=== PATIENT | female | born 1945 | race African-American/Black ===

== ENCOUNTER 2019-08-05 23:07 | Emergency (ER) | payer OTHER ==
[2019-08-05 23:14] VITALS: BMI 37.5
--- NOTE | 2019-08-06 02:29 | PDOC ---
Attending Attestation - Resident Resident Name: Davi López - ED Attending Attestation I have performed the following: I have examined & evaluated the patient, The case was reviewed & discussed with the resident, I agree w/resident's findings & plan - HPI HPI: 08/06/19 05:22 see resident hpi - Physicial Exam PE: 08/06/19 05:22 agree with resident exam - Medical Decision Making 08/06/19 05:23 74-year-old female with posterior legpain, atraumatic Plan for lower extremity ultrasound in the morning Case to be signed out to day shift
--- NOTE | 2019-08-06 05:21 | PDOC ---
History of Present Illness - General Chief Complaint: Pain, Acute Stated Complaint: RT LEG PAIN Time Seen by Provider: 08/06/19 02:19 - History of Present Illness Initial Comments: 08/06/19 06:16 74y/o F HTN, Diabetes, spinal stenosis presents to the ED with complaints of right leg pain since Monday morning. Pain is throbbing and non radiating in nature and behind her ankle. Pain is exacerbated when area is touched or with ambulation. Reports no relieving factors at this time. She has had some associated swelling as well. She denies any trauma, falls, hx of blood clots or shortness of breath. She has taken nothing for relief at home 08/06/19 07:25 Past History - Past Medical History Allergies/Adverse Reactions: Allergies Allergy/AdvReac Type Severity Reaction Status Date / Time No Known Allergies Allergy Verified 08/05/19 23:10 COPD: No CHF: Yes Diabetes: Yes HTN: Yes Other medical history: spinal surgery - Suicide/Smoking/Psychosocial Hx Smoking History: Never smoked Review of Systems - Review of Systems Constitutional: No: Chills, Fever HEENTM: No: Eye Pain, Blurred Vision Respiratory: No: Cough, Shortness of Breath Cardiac (ROS): No: Chest Pain ABD/GI: No: Abdominal Distended, Diarrhea : No: Burning, Dysuria Musculoskeletal: No: Back Pain Neurological: No: Headache, Numbness *Physical Exam - Vital Signs Last Vital Signs Temp Pulse Resp BP Pulse Ox 98.2 F 95 H 17 123/74 95 08/06/19 01:25 08/06/19 01:25 08/06/19 01:25 08/06/19 01:25 08/06/19 01:25 - Physical Exam Comments: 08/06/19 06:08 GENERAL: Awake, alert, and fully oriented, in no acute distress HEAD: No signs of trauma, normocephalic, atraumatic EYES: PERRLA, EOMI, sclera anicteric, conjunctiva clear ENT: Auricles normal inspection, hearing grossly normal, nares patent, oropharynx clear without exudates. Moist mucosa NECK: Normal ROM, supple, no lymphadenopathy, JVD, or masses LUNGS: No distress, speaks full sentences, crackles at lung bases. HEART: Regular rate and rhythm, normal S1 and S2, no murmurs, rubs or gallops, peripheral pulses normal and equal bilaterally. ABDOMEN: Soft, nontender, normoactive bowel sounds. No guarding, no rebound. No masses EXTREMITIES : Normal inspection, Normal range of motion, 2+ pitting edema on lower extremities bilaterally. tenderness on right foot at achilles tendon. no calf tendernes, full dorsiflexion and plantar flexion. NEUROLOGICAL: Cranial nerves II through XII grossly intact. Normal speech, normal gait, no focal sensorimotor deficits SKIN: Warm, Dry, normal turgor, no rashes or lesions noted 08/06/19 06:09 ED Treatment Course - LABORATORY CBC & Chemistry Diagram: 08/06/19 05:07 08/06/19 05:07 - RADIOLOGY Radiology Studies Ordered: Category Date Time Status FOOT-RIGHT [RAD] Stat Radiology 08/06/19 04:38 Ordered DUPLEX VASCUL US-1 LEG [US] Stat Ultrasound 08/06/19 04:38 Ordered Medical Decision Making - Medical Decision Making 08/06/19 06:21 74y/o F HTN, Diabetes, spinal stenosis presents to the ED with complaints of right leg pain since Monday morning. cbc, cmp, duplex u/s of right leg, right foot and ankle x-ray 08/06/19 07:25 cbc, cmp unremarkable BNP: 395.3 08/06/19 07:26 Pending Ultrasound and X-rays Pt signed out to Dr. Logan. *DC/Admit/Observation/Transfer - Referrals Referrals: Bryanna Holland [Primary Care Provider] - - Patient Instructions - Post Discharge Activity
[2019-08-06 05:31] LABS: BASO % 0.4 % (0-2.0); EOS % 1.1 % (0-4.5); HEMATOCRIT 43.5 % (32.4-45.2); HEMOGLOBIN 14.5 GM/dL (10.7-15.3); LYMPH % 22.9 % (8-40); MCH 30.1 pg (25.7-33.7); MCHC 33.2 g/dl (32.0-36.0); MEAN CELL VOLUME 90.7 fl (80-96); MONO % 11.1 % (3.8-10.2); NEUT % 64.5 % (42.8-82.8); PLATELET COUNT 165 K/MM3 (134-434); RDW 13.4 % (11.6-15.6); WHITE BLOOD COUNT 6.1 K/mm3 (4.0-10.0)
[2019-08-06 05:51] LABS: ALBUMIN 3.7 g/dl (3.4-5.0); BILIRUBIN,TOTAL 1.6 mg/dL (0.2-1); BLOOD UREA NITROGEN 13.5 mg/dL (7-18); CALCIUM 10.4 mg/dL (8.5-10.1); CREATININE 0.9 mg/dL (0.55-1.3); POTASSIUM 4.3 mmol/L (3.5-5.1); TOT PROT 7.8 g/dl (6.4-8.2)
[2019-08-06 06:33] VITALS: TEMP 98.4
--- NOTE | 2019-08-06 07:23 | PDOC ---
*Physical Exam - Vital Signs Last Vital Signs Temp Pulse Resp BP Pulse Ox 98.4 F 62 17 122/74 97 08/06/19 06:31 08/06/19 06:31 08/06/19 06:31 08/06/19 06:31 08/06/19 06:31 - Physical Exam Comments: 08/06/19 08:46 Gen: Alert, NAD, comfortable-appearing. HEENT: PERRL, EOMI, MMM, NCAT. No conjunctival pallor. Sclera are non-icteric. CV: Regular rate and rhythm. No murmurs, rubs, or gallops. PULM: No resp distress. CTAB, no wheezes, rales, or rhonchi. ABD: soft, NT/ND, no rebound tenderness or guarding, no CVA tenderness. MSK: No bony deformities. 2+ pulses in all extremities. NEURO: AAOx3. PERRL. No gross CN deficits. Strength and sensation grossly intact throughout. EXTREMITIES: No cyanosis. No clubbing. No calf tenderness. Mild b/l ankle edema. Normal ROM of b/l knees and ankles. +TTP of posterior R ankle. Sensation to light touch intact in BLEs. PSYCH: Normal mood and thought pattern. SKIN: Warm and dry. Normal capillary refill. No rashes. No jaundice. ED Treatment Course - LABORATORY CBC & Chemistry Diagram: 08/06/19 05:07 08/06/19 05:07 - ADDITIONAL ORDERS Additional order review: Laboratory Results 08/06/19 08/06/19 05:07 05:07 Sodium 141 Potassium 4.3 Chloride 102 Carbon Dioxide 31 Anion Gap 8 BUN 13.5 Creatinine 0.9 Est GFR (CKD-EPI)AfAm 73.52 Est GFR (CKD-EPI)NonAf 63.43 Random Glucose 106 Calcium 10.4 H Total Bilirubin 1.6 H AST 21 ALT 24 Alkaline Phosphatase 79 B-Natriuretic Peptide 395.3 H Total Protein 7.8 Albumin 3.7 08/06/19 05:07 RBC 4.80 MCV 90.7 MCHC 33.2 RDW 13.4 MPV 9.0 Neutrophils % 64.5 Lymphocytes % 22.9 Monocytes % 11.1 H Eosinophils % 1.1 Basophils % 0.4 Medical Decision Making - Medical Decision Making 08/06/19 07:23 Received sign out from Dr Cantu. Pt seen and assessed at bedside. Pending US/ XRs. 74yo F hx HTN, DM, and spinal stenosis presents to the ED with R leg/ankle pain , TTP, and mild edema x2 days, atraumatic, no prior hx of similar sx, no DVT RFs or calf tenderness/swelling. No pain meds taken, denies pain meds. Hemodynamically stable, afebrile. Lungs clear, no SOB/respiratory sx/CP. Labs reviewed. No concerning findings on CBC/CMP. BNP 395. Pending duplex US RLE and XR R foot/ankle. If negative, d/c home w/PCP f/u. Most likely musculoskeletal vs arthritis vs diabetic neuropathy. 08/06/19 08:59 XRs: no signs of gross fx or subluxation. There is calcaneal spurring. Appears to be old avulsion or calcification by the medial malleolus. Bunion formation by the first MTP joint, flexed toes with arthritic changes and extensive calcaneal spurring with tarsal bone arthritic changes. Some minimal swelling and vascular calcifications. Degenerative changes in knee joint. 08/06/19 10:00 US reviewed - no evidence of DVT in RLE. Results given to pt and discussed. Will dc home with PCP f/u. Return precautions given. Pt understands all dc instructions and all questions were answered. *DC/Admit/Observation/Transfer Diagnosis at time of Disposition: Right leg pain - Discharge Dispostion Disposition: HOME Condition at time of disposition: Improved Decision to Admit order: No - Referrals Referrals: Bryanna Holland [Primary Care Provider] - - Patient Instructions Printed Discharge Instructions: DI for Leg Pain, DI for Arthritis Additional Instructions: You have been seen in the Emergency Department for your right leg and ankle pain. Your X-ray shows no signs of fracture or dislocation. Your Ultrasound shows no signs of a clot (DVT). There are many possible causes of your pain, but it is most likely arthritis. You will need further evaluation by your primary care doctor. Call their office and make a follow-up appointment for this week. If you experience pain, you can take Tylenol or Ibuprofen as directed on the medication bottle, but do not exceed 3g of Ibuprofen or 4g of Tylenol a day. Rest and protect the injured sore area. Stop, change, or take a break from any activity that may be causing your pain or soreness. Return to the ED immediately if you experience new pain, worsening pain not controlled by over the counter medications, numbness or tingling, weakness, fever, worsening swelling, chest pain, difficulty breathing, or any other new or worsening symptom. - Post Discharge Activity
[2019-08-06 11:12] VITALS: BP 130/78; PULSE 79
== END 2019-08-06 10:40 | disposition home or self-care (01) ==
LOC: JER 23:07
DX: M79.604 Pain in right leg (principal); I10 Essential (primary) hypertension; E11.9 Type 2 diabetes mellitus without complications; M48.00 Spinal stenosis, site unspecified
CPT/HCPCS: 36415; 73590-TC-RT-FY; 73610-TC-RT-FY; 73630-TC-RT-FY; 80053; 83880; 85025; 93971-TC; 99283-25